=== PATIENT | male | born 1950 | race Caucasian/White ===

== ENCOUNTER → 2018-09-19 | Outpatient (CLI) | payer OTHER, MEDICARE | LOC: FCPNEURO 20:00 | PROVIDERS: ATTEND Psychiatry & Neurology Sleep Medicine | DX: G47.39 Other sleep apnea (principal) ==

== ENCOUNTER → 2018-12-11 | Outpatient (CLI) | payer OTHER, MEDICARE | LOC: FCPNEURO 20:00 ==